=== PATIENT | male | born 1980 | race Caucasian/White ===

== ENCOUNTER → 2017-05-29 | Outpatient (CLI) | payer BC ==
[~2017-05-29] MED LIST: CEPH-38 PO; CHOL200025 PO; DOXY100C2 PO; HYDR200T46 PO; IBP200T PO; LINA5TAB PO; MAGN400C PO; METF500T8 PO; TEST75GE3
--- NOTE | 2017-05-29 09:23 | Diagnostic Imaging Report ---
PROCEDURE: US Gallbladder. TECHNIQUE: Multiple real-time grayscale images were obtained over the right upper quadrant in various projections. INDICATION: Right upper quadrant pain. COMPARISON: None. DISCUSSION: Sonographic evaluation of the right upper quadrant was performed. The liver appears normal in echotexture and size. No hepatic mass identified. The gallbladder appears normal without evidence of cholelithiasis, wall thickening, or pericholecystic fluid. No evidence of intrahepatic biliary duct dilatation. The common bile duct and pancreas are obscured due to overlying bowel gas. The right kidney appears normal in echotexture and size without evidence of hydronephrosis or renal mass. The right kidney measures 11.1 cm. There is no ascites or abnormal bowel loops identified. No sonographic Shin sign was reported. IMPRESSION: Poor visualization of the midline structures due to overlying bowel gas. No acute abnormality identified otherwise. Dictated by: Dictated on workstation # [id number]
== END ==
LOC: RAD 07:53
PROVIDERS: ATTEND Nurse Practitioner Family
DX: R10.11 Right upper quadrant pain (principal)
CPT/HCPCS: 76705

== ENCOUNTER → 2018-05-24 | Outpatient (CLI) | payer BC ==
[~2018-05-24] MED LIST changes: +CATHETER FLUSH 10 ML SYR IV PRN
--- NOTE | 2018-05-24 14:20 | Diagnostic Imaging Report ---
Indication: Abdominal pain. Technique: The patient received 4.9 mCi intravenous technetium 99M Choletec. Sequential imaging over the abdomen performed. At the 60 minute interval after we confirmed activity within the gallbladder the bile ducts and spilling into the proximal bowel, gallbladder stimulation was performed with ingestion of Ensure. Gallbladder ejection was then quantified. Findings: There is homogenous distribution of radiopharmacy throughout the liver parenchyma. Within 15 minutes time activity was accumulating within the gallbladder as well as into the central intra-and extrahepatic bile ducts. Within 20 minutes activity is spilled into the proximal bowel. With ensure stimulation the gallbladder ejection fraction was 34%, which is within normal limits for this mode of stimulation. Impression: Normal nuclear medicine hepatobiliary scan and normal gallbladder ejection fraction. Dictated by: Dictated on workstation # [id number]
== END ==
LOC: CARD 10:08
PROVIDERS: ATTEND Nurse Practitioner Family
DX: R10.13 Epigastric pain (principal)
CPT/HCPCS: 78227

== ENCOUNTER 2018-10-09 14:16 | Outpatient (CLI) | payer BC, OTHER ==
[~2018-10-09] VITALS: Ht 177.8 cm; Wt 97.1 kg
[~2018-10-09 14:16] MED LIST changes: +AMPH20TA2 PO; -CATHETER FLUSH 10 ML SYR IV PRN
[2018-10-10] MEDS ORDERED: ACHD5005 PO (12:39)
== END 2018-10-09 14:18 | disposition home or self-care (01) ==
LOC: PREOP 14:16
PROVIDERS: ATTEND Surgery
DX: Z01.818 Encounter for other preprocedural examination (principal)

== ENCOUNTER 2018-10-10 10:12 | Day surgery (SDC) | payer BC, OTHER ==
[~2018-10-10] VITALS: Ht 177.8 cm; Wt 97.1 kg
[2018-10-10 09:25] VITALS: BP 122/88
--- NOTE | 2018-10-10 10:19 | Progress Note-Pre Operative ---
Pre-Operative Progress Note H&P Reviewed The H&P was reviewed, patient examined and no changes noted. Date Seen by Provider: Oct 03, 2018 Time Seen by Provider: 15:00 Date H&P Reviewed: Oct 10, 2018 Time H&P Reviewed: 10:18 Pre-Operative Diagnosis: Chronic acalculous cholecystitis RICCARDO VALDEZ MD Oct 10, 2018 10:19
[2018-10-10] MEDS ORDERED: metroNIDAZOLE 500MG/100ML IVPB 100 ML IV ONE (10:30)
[2018-10-10] MEDS ORDERED: ceFAZolin 2 GM IV Premixed 50 ML IV ONE (10:30)
[2018-10-10] MEDS: LACTATED RINGERS 1,000 ML IV PRN ×3 (10:35→12:28)
[2018-10-10 10:46] LABS: BASOPHILS % (AUTO) 1 % (0-10); EOSINOPHILS # (AUTO) 0.1 10^3/uL (0.0-0.3); EOSINOPHILS % (AUTO) 2 % (0-10); HEMATOCRIT 41 % (40-54); LYMPHOCYTES # (AUTO) 1.5 X 10^3 (1.0-4.0); LYMPHOCYTES % (AUTO) 32 % (12-44); MEAN CORPUSCULAR HEMOGLOBIN 31 PG (25-34); MEAN CORPUSCULAR HGB CONC 37 G/DL (32-36); MEAN CORPUSCULAR VOLUME 84 FL (80-99); MEAN PLATELET VOLUME 9.5 FL (7.4-10.4); MONOCYTES # (AUTO) 0.5 X 10^3 (0.0-1.0); MONOCYTES % (AUTO) 10 % (0-12); NEUTROPHILS # (AUTO) 2.6 X 10^3 (1.8-7.8); NEUTROPHILS % (AUTO) 56 % (42-75); PLATELET COUNT 197 10^3/uL (130-400); RED BLOOD COUNT 4.86 10^6/uL (4.35-5.85); RED CELL DISTRIBUTION WIDTH 12.5 % (10.0-14.5); WHITE BLOOD COUNT 4.8 10^3/uL (4.3-11.0)
[2018-10-10] MEDS ORDERED: BUP/EPI 0.5% 1:200,000 (SENSORCAINE) 30 ML VIAL ONE (10:50)
[2018-10-10 11:03] LABS: ALANINE AMINOTRANSFERASE 72 U/L (0-55); ALBUMIN 4.6 GM/DL (3.2-4.5); ALKALINE PHOSPHATASE 64 U/L (40-136); BILIRUBIN,TOTAL 0.6 MG/DL (0.1-1.0); BUN/CREATININE RATIO 14; CALCIUM 9.8 MG/DL (8.5-10.1); CARBON DIOXIDE 21 MMOL/L (21-32); CHLORIDE 106 MMOL/L (98-107); CREATININE SERUM 1.03 MG/DL (0.60-1.30); GFR ESTIMATED > 60; GLUCOSE 96 MG/DL (70-105); POTASSIUM 4.3 MMOL/L (3.6-5.0); SODIUM 138 MMOL/L (135-145); TOTAL PROTEIN 7.3 GM/DL (6.4-8.2)
[2018-10-10] MEDS ORDERED: SCOPOLAMINE 1.5 MG (TRANSDERM-SCOP) PATCH ONE (11:09)
[2018-10-10] MEDS ORDERED: ONDANSETRON 4 MG/2 ML (SDV) Z0FRAN ONE ×2 (11:09→11:39)
[2018-10-10] MEDS ORDERED: FAMOTIDINE 20MG/2ML IV (PEPCID) ONE (11:09)
[2018-10-10] MEDS ORDERED: MIDAZOLAM 2 MG/2 ML (VERSED) VIAL ONE (11:14)
[2018-10-10] MEDS ORDERED: fentaNYL INJECTION 100 MCG/2 ML AMP ONE ×2 (11:14→12:59)
[2018-10-10] MEDS ORDERED: ONDANSETRON 4 MG/2 ML (SDV) Z0FRAN IV ONE (11:15)
[2018-10-10] MEDS ORDERED: SCOPOLAMINE 1.5 MG (TRANSDERM-SCOP) PATCH TOP ONE (11:15)
[2018-10-10] MEDS ORDERED: FAMOTIDINE 20MG/2ML IV (PEPCID) IV ONE (11:15)
[2018-10-10] MEDS ORDERED: DEXAMETHASONE 10 MG/ML (DECADRON) 1 ML VIAL ONE (11:39)
[2018-10-10] MEDS ORDERED: LIDOCAINE PF 2% 5 ML (XYLOCAINE) VIAL ONE (11:39)
[2018-10-10] MEDS ORDERED: SEVOFLURANE (ULTANE) 15 ML INHAL SOLN ONE ×5 (11:39→13:09)
[2018-10-10] MEDS ORDERED: ROCURONIUM 10 MG/ML 5 ML SYRINGE IV ONE (11:39)
[2018-10-10] MEDS ORDERED: proPOfol 200 MG/20 ML (DIPRIVAN) VIAL IV ONE (11:39)
[2018-10-10] MEDS ORDERED: morphine INJ 10 MG/ML 1ML (SYR OR VIAL) ONE (12:30)
[2018-10-10] MEDS ORDERED: ACHD5005 PO (12:39)
--- NOTE | 2018-10-10 12:40 | Discharge Inst-Simple/Standard ---
Discharge Inst-Standard Discharge Medications New, Converted or Re-Newed RX: RX on Chart Patient Instructions/Follow Up Plan of Care/Instructions/FU: Band-Aids off in 48 hours. Incentive spirometry. Follow-up in 3 weeks. Activity as Tolerated: Yes Discharge Diet: No Restrictions RICCARDO VALDEZ MD Oct 10, 2018 12:40
--- NOTE | 2018-10-10 12:44 | Operative Report ---
Operative Report Date of Procedure/Surgery Oct 10, 2018 Surgeon (s) RICCARDO VALDEZ MD Trial Judge (s): N/A Post-Operative Diagnosis Same Procedure Performed Robotic-assisted cholecystectomy Description of Procedure Anesthesia Type: General Estimated blood loss (mL): Minimal Specimen(s) collected/removed Gallbladder Description of the Procedure Indication for the procedure: This young man presented with symptoms due to chronic, acalculous cholecystitis and slightly to be reduced ejection fraction of the gallbladder on HIDA scan. Therefore, he was offered cholecystectomy using minimally invasive technique with the robotic assistance. Informed consent was obtained after reviewing the operative details and complications of wound infection, bile leak and the persistence of his symptoms. Description of the procedure: He was placed supine on the operative table and general anesthesia induced. 2 g of Ancef and 500 mg of Flagyl were administered intravenously as prophylaxis against wound infection. Sequential compression devices were placed around his legs, to minimize the risk of venous thrombosis. Abdomen was prepared and draped in the usual sterile manner. A subumbilical incision was made and pneumoperitoneum established using a Veress needle. Intra -abdominal pressure was maintained at 15 mmHg, using carbon dioxide insufflation. A 12 mm trocar was placed and anatomy visualized using the high definition, 3-dimensional laparoscope associated with da Dinah system. Under direct view, I placed an 8 mm trocar over each side of the abdomen, followed by a 5 mm trocar over the left upper quadrant. The patient was then turned into reverse Trendelenburg position, with the right side tilted up. The robotic system was then docked in place. The fundus of the gallbladder was retracted cephalad and the infundibulum grasped with Cadiere forceps. Peritoneum overlying Calot's triangle was incised using the hook cautery, delineating the cystic duct and artery. Both were divided between locking clips. Cholecystectomy was then completed using the hook cautery. Subhepatic space was irrigated with saline and the gallbladder placed in an Endo Catch bag, being removed via the subumbilical trocar site. The fascia over this incision was closed using #1 Vicryl using the [place] device, under direct view. Skin incisions were closed using 4-0 Vicryl, in a subcuticular fashion. 0.5 percent Marcaine with epinephrine was infiltrated along the incisions, both preemptively and at the conclusion of the operation. He tolerated the procedure well, was extubated in the operating room and taken to the recovery room in a stable condition. Findings of the Procedure See op report Allergies and Home Medications Allergies Coded Allergies: NKANo Known Allergies (Unverified Allergy, Mild, 02/09/10) Home Medications Dextroamphetamine/Amphetamine 20 Mg Tablet, 20 MG PO DAILY, (Reported) Hydrocodone Bit/Acetaminophen 1 Tab Tab, 1 TAB PO Q6H PRN for PAIN-MODERATE Prescribed by: RICCARDO VALDEZ on 10/10/18 1239 Patient Home Medication List Home Medication List Reviewed: Yes RICCARDO VALDEZ MD Oct 10, 2018 12:44
[2018-10-10] MEDS ORDERED: GLYCOPYRROLATE 0.2 MG/ML (ROBINUL) 2 ML VIAL ONE ×2 (12:46→13:09)
[2018-10-10] MEDS ORDERED: NEOSTIGMINE 1 MG/ML 5 ML SYRINGE ONE ×2 (12:46→13:09)
[2018-10-10] MEDS ORDERED: MEPERIDINE (DEMEROL) INJ 50 MG/ML IVP ONE (13:00)
[2018-10-10] MEDS ORDERED: morphine INJ 10 MG/ML 1ML (SYR OR VIAL) IVP ONE (13:00)
[2018-10-10] MEDS ORDERED: ONDANSETRON 4 MG/2 ML (SDV) Z0FRAN IVP PRN (13:00)
[2018-10-10] MEDS ORDERED: HYDROmorphone 2 MG/ML VIAL (DILAUDID) IV ONE (13:00)
[2018-10-10] MEDS ORDERED: fentaNYL INJECTION 100 MCG/2 ML AMP IVP ONE (13:00)
--- OUTSIDE RECORDS SUMMARY | 2018-10-10 13:35 | XMS REPORT | Continuity of Care Document ---
Author Author [facility] Organization [facility] Address Unknown Phone Unavailable Care Team Providers Care Roll Clamp Operator Name Role Phone NO, LOCAL PHYSICIAN PP Unavailable Insurance Providers Payer Name Policy Number Subscriber Name Relationship [facility] [id number] Gavino Bullock Self / Same As Patient Advance Directives Directive Response Recorded Date Advance Directives N 03/09/13 9:35am Problems No Known Problems or Medical conditions. Social History History Response Recorded Date/Time Alcohol Use Rarely Uses 03/09/13 9:35am Recreational Drug Use N 03/09/13 9:35am Allergies, Adverse Reactions, Alerts Allergen Type Severity Reaction Last Updated No Known Allergies Allergy Mild 02/09/10 Medications Medication Dose Units Route Sig Qty Days Doxycycline Hyclate 1 Each PO BID 21 Ibuprofen (Motrin) 800 Mg PO TID PRN Response Recorded Date/Time Status not known Unknown Results Test Date Result Interp. Ref. Range Carboxyhemoglobin September 18, 2006 4:34am 2.7 % H 0.5-2.5 Procedures Procedure Code Date RPR F/E/E/N/L/M 2.6-5.0 [place] [address] Encounters Encounter Location Date/Time Departed Emergency Room [facility] 09/11 9:29am Registered Emergency Room [facility] 12:00am
--- OUTSIDE RECORDS SUMMARY | 2018-10-10 13:35 | XMS REPORT | Continuity of Care Document ---
Author Author [facility] Organization [facility] Address Unknown Phone Unavailable Allergies Active Description Code Type Severity Reaction Onset Reported/Identified Relationship to Patient Clinical Status Yes NKANo Known Allergies NKA Miscellaneous Allergy Mild N/A 02/09/2010 Medications There is no data. Problems Date Dx Coded Attending Type Code Diagnosis Diagnosed By 03/09/2013 NHI MARTÍNEZ MD Ot 719.40 JOINT PAIN-UNSPEC 04/29/2014 NHI MARTÍNEZ MD Ot 719.41 JOINT PAIN-SHLDER 04/29/2014 NHI MARTÍNEZ MD Ot 780.79 OTH MALAISE FATIGUE 04/29/2014 HNI MARTÍNEZ MD Ot 795.79 OTH AND UNSPEC NONSPECIFIC IMMUNOLOGICAL 12/12/2014 CHRISTINE LLOYD DO Ot 251.2 06/24/2015 VINITA LLOYD Ot 780.54 HYPERSOMNIA, UNSPECIFIED 06/24/2015 VINITA LLOYD Ot 786.09 RESPIRATORY ABNORM NEC 07/20/2016 CHRISTINE LLOYD DO Ot 251.2 HYPOGLYCEMIA NOS 11/23/2016 CHRISTINE LLOYD DO Ot 251.2 HYPOGLYCEMIA NOS 04/04/2017 CHRISTINE LLOYD DO Ot 251.2 HYPOGLYCEMIA NOS 04/14/2017 CHRISTINE LLOYD DO Ot 251.2 HYPOGLYCEMIA NOS 04/19/2017 CHRISTINE LLOYD DO Ot 251.2 HYPOGLYCEMIA NOS 05/23/2017 CHRISTINE LLOYD DO Ot 251.2 HYPOGLYCEMIA NOS 05/25/2017 CHRISTINE LLOYD DO Ot 251.2 HYPOGLYCEMIA NOS 05/29/2017 CHRISTINE LLOYD DO Ot 251.2 HYPOGLYCEMIA NOS 06/04/2017 VINITA LLOYD Ot R10.11 RIGHT UPPER QUADRANT PAIN 06/21/2017 VINITA LLOYD Ot R10.11 RIGHT UPPER QUADRANT PAIN 05/28/2018 LLOYD, VINITA L ENGINEERING DESIGNER Ot R10.13 EPIGASTRIC PAIN 07/05/2018 GABINO YOON, CHRISTINE Masterson Ot 251.2 HYPOGLYCEMIA NOS 07/05/2018 VINITA LLOYD ENGINEERING DESIGNER Ot R10.11 RIGHT UPPER QUADRANT PAIN 07/05/2018 MARGIE LLOYDIA Koffi ENGINEERING DESIGNER Ot R10.13 EPIGASTRIC PAIN 10/03/2018 GABINO YOONCHRISTINE Ot 251.2 HYPOGLYCEMIA NOS 10/03/2018 VINITA LLOYD L ENGINEERING DESIGNER Ot R10.11 RIGHT UPPER QUADRANT PAIN 10/03/2018 LLOYDMARGIE ROYIA L ENGINEERING DESIGNER Ot R10.13 EPIGASTRIC PAIN 10/04/2018 LLOYDMARGIE ROYIA Koffi ENGINEERING DESIGNER Ot R10.13 EPIGASTRIC PAIN 10/09/2018 COURTNEY DAMICO, RICCARDO M Ot Z01.818 ENCOUNTER FOR OTHER PREPROCEDURAL EXAMIN 10/09/2018 COURTNEY DAMICO, RICCARDO M Ot Z01.818 ENCOUNTER FOR OTHER PREPROCEDURAL EXAMIN 10/09/2018 COURTNEY DAMICO, RICCARDO M Ot Z01.818 ENCOUNTER FOR OTHER PREPROCEDURAL EXAMIN 10/10/2018 COURTNEY DAMICO, RICCARDO M Ot Z01.818 ENCOUNTER FOR OTHER PREPROCEDURAL EXAMIN 10/10/2018 LLOYD CHRISTINE YOON Ot 251.2 HYPOGLYCEMIA NOS 10/10/2018 VINITA LLOYD ENGINEERING DESIGNER Ot R10.11 RIGHT UPPER QUADRANT PAIN 10/10/2018 VINITA LLOYD ENGINEERING DESIGNER Ot R10.13 EPIGASTRIC PAIN Procedures There is no data. Results Test Result Range Complete blood count (CBC) with automated white blood cell (WBC) differential - 10/10/18 10:35 Blood leukocytes automated count (number/volume) 4.8 10*3/uL 4.3-11.0 Blood erythrocytes automated count (number/volume) 4.86 10*6/uL 4.35-5.85 Venous blood hemoglobin measurement (mass/volume) 15.0 g/dL 13.3-17.7 Blood hematocrit (volume fraction) 41 % 40-54 Automated erythrocyte mean corpuscular volume 84 [foz_us] 80-99 Automated erythrocyte mean corpuscular hemoglobin (mass per erythrocyte) 31 pg 25-34 Automated erythrocyte mean corpuscular hemoglobin concentration measurement ( mass/volume) 37 g/dL 32-36 Automated erythrocyte distribution width ratio 12.5 % 10.0-14.5 Automated blood platelet count (count/volume) 197 10*3/uL 130-400 Automated blood platelet mean volume measurement 9.5 [foz_us] 7.4-10.4 Automated blood neutrophils/100 leukocytes 56 % 42-75 Automated blood lymphocytes/100 leukocytes 32 % 12-44 Blood monocytes/100 leukocytes 10 % 0-12 Automated blood eosinophils/100 leukocytes 2 % 0-10 Automated blood basophils/100 leukocytes 1 % 0-10 Blood neutrophils automated count (number/volume) 2.6 10*3 1.8-7.8 Blood lymphocytes automated count (number/volume) 1.5 10*3 1.0-4.0 Blood monocytes automated count (number/volume) 0.5 10*3 0.0-1.0 Automated eosinophil count 0.1 10*3/uL 0.0-0.3 Automated blood basophil count (count/volume) 0.0 10*3/uL 0.0-0.1 Comprehensive metabolic panel - 10/10/18 10:35 Serum or plasma sodium measurement (moles/volume) 138 mmol/L 135-145 Serum or plasma potassium measurement (moles/volume) 4.3 mmol/L 3.6-5.0 Serum or plasma chloride measurement (moles/volume) 106 mmol/L 98-107 Carbon dioxide 21 mmol/L 21-32 Serum or plasma anion gap determination (moles/volume) 11 mmol/L 5-14 Serum or plasma urea nitrogen measurement (mass/volume) 14 mg/dL 7-18 Serum or plasma creatinine measurement (mass/volume) 1.03 mg/dL 0.60-1.30 Serum or plasma urea nitrogen/creatinine mass ratio 14 NRG Serum or plasma creatinine measurement with calculation of estimated glomerular filtration rate > NRG Serum or plasma glucose measurement (mass/volume) 96 mg/dL 70-105 Serum or plasma calcium measurement (mass/volume) 9.8 mg/dL 8.5-10.1 Serum or plasma total bilirubin measurement (mass/volume) 0.6 mg/dL 0.1-1.0 Serum or plasma alkaline phosphatase measurement (enzymatic activity/volume) 64 U/L 40-136 Serum or plasma aspartate aminotransferase measurement (enzymatic activity/ volume) 42 U/L 5-34 Serum or plasma alanine aminotransferase measurement (enzymatic activity/volume ) 72 U/L 0-55 Serum or plasma protein measurement (mass/volume) 7.3 g/dL 6.4-8.2 Serum or plasma albumin measurement (mass/volume) 4.6 g/dL 3.2-4.5 Encounters ACCT No. Visit Date/Time Discharge Status Pt. Type Provider Facility Loc./Unit Complaint [id number] 10/09/2018 14:16:00 10/09/2018 14:18:00 DIS Outpatient RICCARDO VALDEZ MD [facility] PREOP ROBOTIC LAPAROSCOPIC CHOLECYSTECTOMY [id number] 05/24/2018 10:08:00 05/24/2018 23:59:59 CLS Outpatient VINITA LLOYD [facility] CARD ABD PAIN [id number] 05/29/2017 07:53:00 05/29/2017 23:59:59 CLS Outpatient VINITA LLOYD [facility] RAD ABD PAIN [id number] 06/23/2015 19:55:00 06/24/2015 06:15:00 DIS Outpatient VINITA LLOYD [facility] SLEEP SNORING EXCESSIVE DAYTIME SLEEPINESS MOOD DISORDER [id number] 11/12/2014 15:53:00 11/12/2014 23:59:59 CLS Outpatient CANDI FERRARA [facility] QUICK [id number] 04/29/2014 13:43:00 04/29/2014 16:49:00 DIS Emergency NHI MARTÍNEZ MD [facility] ER MULTIPLE COMPLAINTS [id number] 02/02/2014 08:54:00 02/02/2014 23:59:59 CLS Outpatient CHRISTINE LLOYD DO [facility] LAB POST PRANDIAL HYPOGLYCEMIA SYMPTOMS [id number] 03/09/2013 09:29:00 03/09/2013 10:26:00 DIS Emergency NHI MARTÍNEZ MD [facility] ER SWOLLEN JOINTS [id number] 02/27/2013 16:06:00 02/27/2013 23:59:59 CLS Outpatient [id number] 10/10/2018 10:12:00 ACT Outpatient COURTNEY DAMICO, RICCARDO Garnica [facility] GALLBLADDER DYSKINESIA [id number] 11/12/2017 06:08:10 11/12/2017 23:59:59 CLS Outpatient
[2018-10-10 14:00] VITALS: BP 142/98
[2018-10-10 14:30] VITALS: BP 139/95
[2018-10-10] MEDS ORDERED: HYDROcodone/APAP 5 MG/325 MG (LORTAB) TAB PO ONE (14:45)
[2018-10-10 15:00] VITALS: BP 146/87
[2018-10-10 15:15] VITALS: BP 146/87
== END 2018-10-10 15:35 | disposition home or self-care (01) ==
LOC: SDC 10:12
PROVIDERS: ATTEND Surgery
DX: K81.1 Chronic cholecystitis (principal); K82.8 Other specified diseases of gallbladder; E88.81 Metabolic syndrome and other insulin resistance; E66.9 Obesity, unspecified; Z68.30 Body mass index [BMI] 30.0-30.9, adult; Z79.899 Other long term (current) drug therapy
CPT/HCPCS: 36415; 80053; 85025; 87081

== ENCOUNTER 2018-11-26 09:51 | Outpatient (RCR) | payer BC ==
[~2018-11-26 09:51] MED LIST changes: +ACHD5005 PO
== END 2018-12-20 10:25 | disposition home or self-care (01) ==
PROVIDERS: ATTEND Nurse Practitioner Family
DX: M25.511 Pain in right shoulder (principal); Z98.890 Other specified postprocedural states

== ENCOUNTER → 2019-10-18 | Outpatient (CLI) | payer BC | LOC: CARD 09:25 | PROVIDERS: ATTEND Internal Medicine Cardiovascular Disease | DX: E88.81 Metabolic syndrome and other insulin resistance (principal); R42 Dizziness and giddiness; R55 Syncope and collapse | CPT/HCPCS: 93306 ==

== ENCOUNTER 2019-10-25 11:26 | Outpatient (RCR) | payer BC | END 2020-01-23 | disposition home or self-care (01) | LOC: CARD 11:26 | PROVIDERS: ATTEND Nurse Practitioner Family | DX: I49.1 Atrial premature depolarization (principal); H53.131 Sudden visual loss, right eye; I95.1 Orthostatic hypotension | CPT/HCPCS: 93225; 93226 ==

== ENCOUNTER → 2019-12-06 | Outpatient (CLI) | payer BC ==
[2019-12-06 08:11] VITALS: BP 104/77
[2019-12-06 08:25] VITALS: BP 151/71
--- NOTE | 2019-12-06 11:15 | STRESS TEST ---
DATE OF SERVICE: 12/06/2019 RESTING AND POST EXERCISE TECHNETIUM-99M TETROFOSMIN SPECT CT IMAGING ORDERING PHYSICIAN: Dr. Toscano. PRIMARY PHYSICIAN: Dr. Toscano. CLINICAL DIAGNOSIS: Chest discomfort. Baseline images were carried out after injection of 10.7 mCi of technetium-99m Tetrofosmin. Subsequently, exercise was carried out on a treadmill under Dr. Toscano's supervision and this is reported separately by Dr. Toscano. Dr. Toscano also ordered and monitored the stress dose of technetium-99m Tetrofosmin which was 32.4 mCi. This was administered after the patient had attained 85% of maximum predicted heart rate. Review of images at rest and following stress does not indicate any significant perfusion defects consistent with significant myocardial ischemia or infarction. Gated images showed normal global left ventricular systolic function with normal regional wall motion. Left ventricular ejection fraction is calculated to be 60%. Left ventricular end diastolic volume is 72 mL. TID is absent (1.01). CONCLUSIONS: 1. No evidence of myocardial ischemia or infarction on myocardial perfusion imaging. 2. Normal global left ventricular systolic function with an ejection fraction of 60%. Job ID: [id number] DocumentID: [id number] Dictated Date: 12/06/2019 10:28:33 Protection Agent Date: 12/06/2019 11:10:37 Dictated By: CLARENCE TAVERAS MD, MA, FACP, FACC,
== END ==
LOC: CARD 06:54
PROVIDERS: ATTEND Nurse Practitioner Family
DX: I49.8 Other specified cardiac arrhythmias (principal); R07.89 Other chest pain
CPT/HCPCS: 78452; 93017

== ENCOUNTER 2020-11-30 15:31 | Emergency (ER) | payer BC ==
[~2020-11-30] VITALS: Ht 175.2 cm; Wt 90.7 kg
--- NOTE | 2020-11-30 15:41 | ED General ---
General Stated Complaint: CHEST PAIN, NUMB HAND, EYES BLURRY, HEADACHE Source of Information: Patient Exam Limitations: No Limitations History of Present Illness Date Seen by Provider: Nov 30, 2020 Time Seen by Provider: 15:39 Initial Comments To ER by private vehicle with reports of some blurred vision, headache, sharp lateral left chest pain. Comes and goes at random and is not associated with any exacerbating or alleviating factors. Timing/Duration: 1-2 Days Severity: Moderate Allergies and Home Medications Allergies Coded Allergies: NKANo Known Allergies (Unverified Allergy, Mild, 02/09/10) Home Medications Dextroamphetamine/Amphetamine 20 Mg Tablet, 20 MG PO DAILY, (Reported) Hydrocodone Bit/Acetaminophen 1 Tab Tab, 1 TAB PO Q6H PRN for PAIN-MODERATE Prescribed by: RICCARDO VALDEZ on 10/10/18 1239 Patient Home Medication List Home Medication List Reviewed: Yes Review of Systems Review of Systems Constitutional: see HPI, malaise EENTM: see HPI Respiratory: no symptoms reported; No cough Cardiovascular: no symptoms reported Genitourinary: no symptoms reported Musculoskeletal: no symptoms reported Skin: no symptoms reported Psychiatric/Neurological: No Symptoms Reported Hematologic/Lymphatic: No Symptoms Reported Immunological/Allergic: no symptoms reported Past Omoshvc-Wzpihh-Xvwcsn Hx Patient Social History Recent Hopitalizations: No Immunizations Up To Date Date of Influenza Vaccine: Jul 30, 2018 Seasonal Allergies Seasonal Allergies: Yes Past Medical History Reproductive Disorders: No Gall Bladder Disease Family Medical History No Pertinent Family Hx Physical Exam Vital Signs Vital Signs - First Documented 11/30/20 15:33 Temp 36.8 Pulse 72 Resp 20 B/P (MAP) 123/85 (98) Pulse Ox 96 O2 Delivery Room Air Capillary Refill : Height, Weight, BMI Height: 5'10.00" Weight: 214lbs. 0.0oz. 97.484232cg; 30.7 BMI Method:Stated General Appearance: No Apparent Distress, WD/WN Eyes: Bilateral Eye Normal Inspection, Bilateral Eye PERRL, Bilateral Eye EOMI Neck: Full Range of Motion, Normal Inspection Respiratory: Normal Breath Sounds, No Accessory Muscle Use, No Respiratory D istress Cardiovascular: Regular Rate, Rhythm, Normal Peripheral Pulses Gastrointestinal: Normal Bowel Sounds, Non Tender, Soft Extremity: Normal Capillary Refill, Normal Inspection Neurologic/Psychiatric: Alert, Oriented x3 Skin: Normal Color, Warm/Dry Progress/Results/Core Measures Suspected Sepsis SIRS Temperature: Pulse: Respiratory Rate: Laboratory Tests 11/30/20 15:45: White Blood Count 4.8 Blood Pressure / Mean: Laboratory Tests 11/30/20 15:45: Creatinine 1.14, Platelet Count 183, Total Bilirubin 1.0 Results/Orders Lab Results Laboratory Tests Test 11/30/20 15:45 11/30/20 16:00 Range/Units White Blood Count 4.8 4.3-11.0 10^3/uL Red Blood Count 4.64 4.30-5.52 10^6/uL Hemoglobin 14.4 13.3-17.7 g/dL Hematocrit 40 40-54 % Mean Corpuscular Volume 87 80-99 fL Mean Corpuscular Hemoglobin 31 25-34 pg Mean Corpuscular Hemoglobin Concent 36 32-36 g/dL Red Cell Distribution Width 11.9 10.0-14.5 % Platelet Count 183 130-400 10^3/uL Mean Platelet Volume 9.0 9.0-12.2 fL Immature Granulocyte % (Auto) 0 % Neutrophils (%) (Auto) 63 42-75 % Lymphocytes (%) (Auto) 29 12-44 % Monocytes (%) (Auto) 7 0-12 % Eosinophils (%) (Auto) 1 0-10 % Basophils (%) (Auto) 0 0-10 % Neutrophils # (Auto) 3.0 1.8-7.8 10^3/uL Lymphocytes # (Auto) 1.4 1.0-4.0 10^3/uL Monocytes # (Auto) 0.4 0.0-1.0 10^3/uL Eosinophils # (Auto) 0.0 0.0-0.3 10^3/uL Basophils # (Auto) 0.0 0.0-0.1 10^3/uL Immature Granulocyte # (Auto) 0.0 0.0-0.1 10^3/uL D-Dimer < 0.27 0.00-0.49 UG/ML Sodium Level 138 135-145 MMOL/L Potassium Level 3.9 3.6-5.0 MMOL/L Chloride Level 104 98-107 MMOL/L Carbon Dioxide Level 25 21-32 MMOL/L Anion Gap 9 5-14 MMOL/L Blood Urea Nitrogen 11 7-18 MG/DL Creatinine 1.14 0.60-1.30 MG/DL Estimat Glomerular Filtration Rate > 60 BUN/Creatinine Ratio 10 Glucose Level 93 70-105 MG/DL Calcium Level 9.1 8.5-10.1 MG/DL Corrected Calcium 8.7 8.5-10.1 MG/DL Total Bilirubin 1.0 0.1-1.0 MG/DL Aspartate Amino Transf (AST/SGOT) 27 5-34 U/L Alanine Aminotransferase (ALT/SGPT) 27 0-55 U/L Alkaline Phosphatase 50 40-136 U/L Troponin I < 0.028 <0.028 NG/ML C-Reactive Protein High Sensitivity 0.04 0.00-0.50 MG/DL Total Protein 7.1 6.4-8.2 GM/DL Albumin 4.5 3.2-4.5 GM/DL Procalcitonin 0.01 <0.10 NG/ML My Orders Orders - CONY BOLIVAR ELECTRONIC FUNDS TRANSFER COORDINATOR Cbc With Automated Diff (11/30/20 15:41) Comprehensive Metabolic Panel (11/30/20 15:41) Hs C Reactive Protein (11/30/20 15:41) Fibrin Degradation Products (11/30/20 15:41) Chest 1 View, Ap/Pa Only (11/30/20 15:41) Ekg Tracing (11/30/20 15:41) Troponin I (11/30/20 15:41) Ed Iv/Invasive Line Start (11/30/20 15:41) Procalcitonin (Pct) (11/30/20 15:41) Coronavirus Sars-Cov-2 So 2018 (11/30/20 16:03) Covid 19 Inhouse Test (11/30/20 16:03) Vital Signs/I&O 11/30/20 11/30/20 15:33 15:33 Temp 36.8 Pulse 72 Resp 20 B/P (MAP) 123/85 (98) Pulse Ox 96 O2 Delivery Room Air Room Air Capillary Refill : Departure Impression Primary Impression: Chest wall pain Disposition: HOME, SELF-CARE Condition: Stable Departure-Patient Inst. Decision time for Depature: 16:46 Referrals: CHRISTINE LLOYD DO (PCP/Family) Primary Care Physician Patient Instructions: Chest Pain (DC) Add. Discharge Instructions: 1. Return to ER for any concerns 2. Follow-up with your doctor next week 3. CONY BOLIVAR APRN Nov 30, 2020 15:41
[2020-11-30 15:54] LABS: BASOPHILS % (AUTO) 0 % (0-10); EOSINOPHILS % (AUTO) 1 % (0-10); HEMATOCRIT 40 % (40-54); HEMOGLOBIN 14.4 g/dL (13.3-17.7); LYMPHOCYTES # (AUTO) 1.4 10^3/uL (1.0-4.0); LYMPHOCYTES % (AUTO) 29 % (12-44); MEAN CORPUSCULAR HEMOGLOBIN 31 pg (25-34); MEAN CORPUSCULAR HGB CONC 36 g/dL (32-36); MEAN CORPUSCULAR VOLUME 87 fL (80-99); MONOCYTES # (AUTO) 0.4 10^3/uL (0.0-1.0); MONOCYTES % (AUTO) 7 % (0-12); NEUTROPHILS % (AUTO) 63 % (42-75); PLATELET COUNT 183 10^3/uL (130-400); WHITE BLOOD COUNT 4.8 10^3/uL (4.3-11.0)
--- NOTE | 2020-11-30 16:00 | Diagnostic Imaging Report ---
INDICATION: Chest pain, numb hand, blurry eyes, headache. TECHNIQUE: Single view chest 3:51 PM. CORRELATION STUDY: None FINDINGS: The heart size, mediastinal configuration and pulmonary vascularity are within normal limits. The lungs are clear with no consolidating infiltrate. There is no significant effusion or pneumothorax. IMPRESSION: 1. Negative for acute abnormality of the chest. Dictated by: Dictated on workstation # [id number]
[2020-11-30 16:03] LABS: ALBUMIN 4.5 GM/DL (3.2-4.5); CHLORIDE 104 MMOL/L (98-107); POTASSIUM 3.9 MMOL/L (3.6-5.0); SODIUM 138 MMOL/L (135-145)
[2020-11-30 16:04] LABS: CALCIUM 9.1 MG/DL (8.5-10.1)
[2020-11-30 16:05] LABS: GLUCOSE 93 MG/DL (70-105); TOTAL PROTEIN 7.1 GM/DL (6.4-8.2)
[2020-11-30 16:06] LABS: CARBON DIOXIDE 25 MMOL/L (21-32)
[2020-11-30 16:09] LABS: ALKALINE PHOSPHATASE 50 U/L (40-136); CREATININE SERUM 1.14 MG/DL (0.60-1.30); GFR ESTIMATED > 60
[2020-11-30 16:10] LABS: BUN/CREATININE RATIO 10
[2020-11-30 16:12] LABS: ALANINE AMINOTRANSFERASE 27 U/L (0-55)
[2020-11-30 17:10] VITALS: BP 106/77
== END 2020-11-30 17:10 | disposition home or self-care (01) ==
LOC: EDUNIT# 15:31 → ER 15:33
DX: R07.89 Other chest pain (principal); Z20.822 Contact with and (suspected) exposure to COVID-19
CPT/HCPCS: 71045; 80053; 84145; 84484; 85025; 85379; 86141; 93005; 99284; U0002; 36415; 87635

== ENCOUNTER → 2022-07-06 | Outpatient (CLI) | payer BC ==
[~2022-07-06] MED LIST changes: +RT-ALBUTEROL SULF 2.5 MG/3 ML PRE-MIX VIAL INH ONE
== END ==
LOC: RT 15:45
PROVIDERS: ATTEND Nurse Practitioner Family
DX: R06.02 Shortness of breath (principal)
CPT/HCPCS: 94060; 94726; 94729

== ENCOUNTER 2022-08-28 17:25 | Emergency (ER) | payer BC ==
[~2022-08-28] VITALS: Ht 177.8 cm; Wt 99.7 kg
[~2022-08-28 17:25] MED LIST changes: -RT-ALBUTEROL SULF 2.5 MG/3 ML PRE-MIX VIAL INH ONE
[2022-08-28] MEDS ORDERED: LIDOCAINE/EPI 2% 1:100,00 (XYLOCAINE) 20 ML VIAL INJ ONE (17:45)
[2022-08-28] MEDS ORDERED: LIDOCAINE/EPI 2% 1:200,00 (XYLOCAINE) 10 ML VIAL INJ ONE (17:45)
[2022-08-28] MEDS ORDERED: TETANUS,DIPTH,PERTUSS P/F (BOOSTRIX) 0.5 ML VIAL IM ONE (17:45)
--- NOTE | 2022-08-28 18:19 | ED Upper Extremity ---
General Chief Complaint: Laceration Stated Complaint: RIGHT HAND LAC Nursing Triage Note: pt arrived pov with a hand lac to the right hand. pt was cleaning a deer and cut his hand. History of Present Illness Date Seen by Provider: Aug 28, 2022 Time Seen by Provider: 17:35 Initial Comments Patient is a 42-year-old male who presents to the emergency department for evaluation of a laceration to his right palm/thenar eminence. Patient states he was helping his son clean a deer school when the knife slipped causing him to lacerate his hand. He states the knife was very sharp and the wound was cleansed with running water. Patient is unsure of the date of his last tetanus immunization. He states he has full range of motion and sensation in all digits of the right hand. Denies any other pain or injury. Allergies and Home Medications Allergies Coded Allergies: LESAANo Known Allergies (Unverified Allergy, Mild, 02/09/10) Patient Home Medication List Home Medication List Reviewed: Yes Dextroamphetamine/Amphetamine (Adderall 20 mg Tablet) 20 Mg Tablet, 20 MG PO DAILY, (Reported) Entered as Reported by: IVAN BROWNING on 10/09/18 1411 Hydrocodone Bit/Acetaminophen (Lortab 5 Mg Tablet) 1 Tab Tab, 1 TAB PO Q6H PRN for PAIN-MODERATE Prescribed by: RICCARDO VALDEZ on 10/10/18 1239 Review of Systems Constitutional: no symptoms reported EENTM: no symptoms reported Respiratory: no symptoms reported Cardiovascular: no symptoms reported Gastrointestinal: no symptoms reported Genitourinary: no symptoms reported Musculoskeletal: no symptoms reported Skin: see HPI Past Zbcrsrt-[id number] Hx Patient Social History Tobacco Use?: No Substance use?: No Pt feels they are or have been: No Immunizations Up To Date Influenza Vaccine Up-to-Date: Yes; Up-to-Date Seasonal Allergies Seasonal Allergies: Yes Past Medical History Surgeries: Yes (right rotator cuff, rachel fundoplication) Respiratory: No Cardiac: No Neurological: No Reproductive Disorders: No Gastrointestinal: Yes Gall Bladder Disease Musculoskeletal: No Endocrine: No Cancer: No Psychosocial: No Integumentary: No Blood Disorders: No Family Medical History No Pertinent Family Hx Physical Exam Vital Signs Vital Signs - First Documented 08/28/22 17:30 Pulse 85 B/P (MAP) 131/75 (93) Pulse Ox 95 O2 Delivery Room Air Capillary Refill : Height, Weight, BMI Height: 5'10.00" Weight: 214lbs. 0.0oz. 97.126326ly; 31.00 BMI Method:Stated General Appearance: WD/WN, no apparent distress HEENT: PERRL/EOMI, normal ENT inspection, TMs normal, pharynx normal Neck: non-tender, full range of motion Cardiovascular: regular rate, rhythm Respiratory: chest non-tender, lungs clear Gastrointestinal: normal bowel sounds, non tender, soft Back: normal inspection Neurologic/Psychiatric: alert, normal mood/affect, oriented x 3 Skin: normal color, warm/dry Procedures/Interventions Wound Location: Upper Extremities (right hand) Other Wound Location thenar eminence of R hand Wound Length (cm): 2 Wound's Depth, Shape: superficial, linear Wound Explored: clean Irrigated w/ Saline (ccs): 100 Anesthesia: Lidocaine w/ Epi Volume Anesthetic (ccs): 2 Suture: Prolene Suture Size: 4-0 Number of Sutures: 4 Layer Closure?: 1 Progress/Results/Core Measures Results/Orders My Orders Orders - CECILIA CHOUDHURY APRN Dipht,Pertuss(Acell),Tet Adult (Boostrix (08/28/22 17:45) Lidocaine/Epi Mpf 2% 1:200,000 (Xylocain (08/28/22 17:45) Medications Given in ED Current Medications Medications Dose Ordered Sig/Aga Route Start Time Stop Time Status Last Admin Dose Admin Diphtheria/ Tetanus/Acell Pertussis 0.5 ml ONCE ONCE IM 08/28/22 17:45 08/28/22 17:46 DC 08/28/22 17:51 0.5 ML Lidocaine/ Epinephrine 10 ml ONCE ONCE INJ 08/28/22 17:45 08/28/22 17:46 DC 08/28/22 17:50 10 ML Vital Signs/I&O 08/28/22 08/28/22 17:30 18:24 Pulse 85 85 B/P (MAP) 131/75 (93) 131/75 Pulse Ox 95 95 O2 Delivery Room Air Room Air Blood Pressure Mean: 93 Progress Progress Note : Progress Note Patient is nontoxic and well-hydrated on exam. Appears to be no disruption of any vital structures in the hand as patient has full sensation and movement of all digits in the right hand. Tetanus was updated. Laceration was repaired as noted separately. Patient tolerated well. Patient discharged home with recommendations for supportive care and need for follow-up in 7 to 10 days for suture removal. Return precautions for urgent symptomology discussed. Patient verbalized understanding. Departure Impression Primary Impression: Laceration of right hand Qualified Codes: S61.411A - Laceration without foreign body of right hand, initial encounter Disposition: HOME, SELF-CARE Condition: Improved Departure-Patient Inst. Decision time for Depature: 18:15 Referrals: CHRISTINE LLOYD DO (PCP/Family) Primary Care Physician Patient Instructions: Laceration Repair With Stitches ED Add. Discharge Instructions: The sutures will need to be removed in 7-10 days All discharge instructions reviewed with patient and/or family. Voiced understanding. CECILIA CHOUDHURY APRN Aug 28, 2022 18:18
[2022-08-28 18:24] VITALS: BP 131/75
== END 2022-08-28 18:25 | disposition home or self-care (01) ==
LOC: EDUNIT# 17:25 → ER 17:27
DX: S61.411A Laceration without foreign body of right hand, initial encounter (principal); Z23 Encounter for immunization; W26.0XXA Contact with knife, initial encounter; Y93.G1 Activity, food preparation and clean up
CPT/HCPCS: 90715